=== PATIENT | female | born 1950 | race Caucasian/White ===

== ENCOUNTER 2017-04-17 19:05 | Emergency (ER) | payer OTHER ==
[~2017-04-17] VITALS: Ht 162.6 cm; Wt 99.8 kg
[2017-04-17] MEDS ORDERED: SYNTHROID125 MCG (19:37)
== END 2017-04-17 23:13 | disposition home or self-care (01) ==
LOC: ER 19:05
DX: J06.9 Acute upper respiratory infection, unspecified (principal); J11.1 Influenza due to unidentified influenza virus with other respiratory manifestations